=== PATIENT | female | born 1945 | race African-American/Black ===

== ENCOUNTER 2018-11-25 05:40 | Inpatient (IN) | payer OTHER ==
[~2018-11-25] VITALS: Ht 177.8 cm; Wt 104.3 kg
[2018-11-25 06:09] VITALS: BP 144/84
[2018-11-25 08:35] VITALS: BP 144/84
[2018-11-25] MEDS ORDERED: PLAQUENIL200 MG PO (10:27)
[2018-11-25] MEDS ORDERED: NEXIUM20 MG PO (10:28)
[2018-11-25] MEDS ORDERED: COZAAR100 MG PO (10:29)
[2018-11-25] MEDS ORDERED: HYDROCHLOROTHIA25 MG PO (10:30)
[2018-11-25] MEDS ORDERED: ACYCLOVIR400 MG PO (10:47)
[2018-11-25] MEDS ORDERED: SYMBICORT1 AE2 INH (10:49)
[2018-11-25] MEDS ORDERED: XARELTO10 M1 PO (10:49)
[2018-11-25] MEDS ORDERED: ALBUTEROL1.25 MG/3 IH (10:50)
[2018-11-25] MEDS ORDERED: SPIRIVA18 MC1 IH (10:50)
[2018-11-25] MEDS ORDERED: PERCOCET1 TA5 PO (10:51)
[2018-11-25] MEDS ORDERED: MULTI-VITAMINS1 TAB PO (10:52)
[2018-11-25 13:36] VITALS: BP 125/61
--- NOTE | 2018-11-25 13:49 | NUR ---
AWAKE, DROWSY, FROM [place] STATUS POST RIGHT HIP REPLACEMENT. ABLE TO STATE NAME, , WHERE SHE, PRESENT MONTH AND YEAR. OPENED EYES SPONTANEOUSLY. BREATHING EVEN AND UNLABORED ON 3LPM OF O2 VIA NC. LUNG SOUNDS CLEAR. DRESSING TO RIGHT HIP CLEAN AND DRY. ABDUCTOR PILLOW BETWEEN LEGS. ADMISSION HISTORY AND ASSESSMENT DONE. DAUGHTER WITH PT. INSTRUCTED ON USE OF CALL LIGHT TO CALL FOR ASSISTANCE. PLACED WITHIN EASY REACH.
--- NOTE | 2018-11-25 14:25 | NUR ---
PT AMBULATING VIA FWW WITH PHYSICAL THERAPY, STATES PAIN IS TOLERABLE AT THIS TIME, COMPLAINING OF NAUSEA, ZOFRAN IVP GIVEN, DAUGHTER AT BEDSIDE.
--- NOTE | 2018-11-25 14:50 | NUR ---
PT BACK IN BED AFTER AMBULATING WITH PHYSICAL THERAPY, STATES PAIN IS TOELRABLE, STATES NAUSEA WENT AWAY AFTER RECEIVING ZOFRAN, DAUGHTER AT BEDSIDE, TRISTA LIGHT WITHIN REACH.
--- NOTE | 2018-11-25 15:38 | NUR ---
PHARMACIST CALLED, NEED CLARIFICATION FOR PAIN SCALE FOR ORDERED PRN DILAUDID IVP. CALLED DR. QUAN WHO GAVE ORDER FOR PAIN SCALE TO ADMINISTER DILAUDID ORDERED FOR PAIN RATED 7-10. INFORMED PHARMACIST
--- NOTE | 2018-11-25 16:14 | NUR ---
PT RESTING IN BED, NO RESPIRATORY DISTRESS NOTED, STATES PAIN IS TOLERABLE AT THIS TIME @ 2, REFUSING TORADOL AND TYLENOL PO AT THIS TIME, DENIES NAUSEA, DAUGHTER AT BEDSIDE, CALL LIGHT WITHIN REACH.
--- NOTE | 2018-11-25 17:00 | NUR ---
PT RESTING IN BED, WITH BOTH EYES CLOSED, APPEARS TO BE SLEEPING, NO RESPRIATORY DISTRESS NOTED, DAUGHTER AT BEDSIDE, CALL LIGHT WITHIN REACH.
[2018-11-25 17:16] VITALS: BP 108/57
--- NOTE | 2018-11-25 19:00 | NUR ---
PT COMPLAINING OF 3/10 RLE PAIN, TYLNEOL PO GIVEN, NO RESPRIATORY DISTRESS NOTED, DAUGHTER AT BEDSIDE, CALL LIGHT WITHIN REACH. WILL REASSES PAIN.
--- NOTE | 2018-11-25 19:40 | NUR ---
PT RECEIVED A/O X4, ABLE TO MAKE NEEDS KNOWN. DAUGHTER AT BEDSIDE. MED-SURG, PT DENIES ANY CP/PRESSURE. PULSES PALPABLE, EDEMA TO RLE. BREATHING IS EVEN AND UNLABORED ON RA, DENIES SOB, NO RESP DISTRESS NOTED. ABD SOFT AND NONDISTENDED, DENIES N/V. PT DENIES HAVING A BM POST-OP, BUT REPORTS PASSING GAS. ASSISTED PT TO AMBULATE TO BSC TO ATTEMPT TO VOID. GENERALIZED WEAKNESS, FWW AT BEDSIDE. S/P RIGHT TOTAL HIP REPLACEMENT TODAY WITH RT HIP SURGICAL DRSG IN PLACE, CDI. PT REPORTS 6/10 PAIN, TORADOL OR PRN PAIN MED OFFERED, PT REFUSED, PT STATES, "PAIN IS OKAY FOR NOW." SL TO RAC, IVF INFUSING WELL TO LH, SITES PATENT AND INTACT, WNL. NO ACUTE DISTRESS NOTED. CALL LIGHT WITHIN REACH. WILL CONT TO MONITOR.
--- NOTE | 2018-11-25 19:47 | NUR ---
ASSISTED PT TO BEDSIDE COMMODE WITH SETH AND DINO ANDERSON. PT ABLE TO AMBULATE TO COMMODE WITH MINIMAL ASSISTANCE. AFTER AMBULATING TO COMMODE, PT STATES HER PAIN IS 6/10. PT WAS OFFERED TORADOL IVP BUT DECLINED AND STATED SHE DOES NOT WANT MORE PAIN MEDS AT THIS TIME. PT DENIES NAUSEA. DAUGHTER AT BEDSIDE. PT EDUCATED NOT TO GET UP ALONE AND TO USE CALL LIGHT TO CALL FOR HELP. CALL LIGHT WITHIN REACH.
--- NOTE | 2018-11-25 19:52 | NUR ---
ENDORSED CARE TO DINO ANDERSON.
[2018-11-25 20:38] VITALS: BP 137/61
--- NOTE | 2018-11-26 00:50 | NUR ---
PT C/O 11/16 RT HIP PAIN AND REQUESTING TORADOL, PT REFUSED STRONGER PAIN MED. TORADOL IVP GIVEN ORDERED. NO ACUTE DISTRESS NOTED. CALL LIGHT WITHIN REACH. WILL CONT TO MONITOR.
--- NOTE | 2018-11-26 03:19 | NUR ---
PT C/O 11/16 RT HIP PAIN. OFFERED PT STRONGER PAIN MED, PT REFUSED AND REQUESTED FOR TYLENOL. PRN TYLENOL GIVEN ORDERED. NO ACUTE DISTRESS NOTED. IVF INFUSING WELL, SITE WNL. DAUGHTER AT BEDSIDE. CALL LIGHT WITHIN REACH. WILL CONT TO MONITOR.
[2018-11-26 05:24] VITALS: BP 106/53
--- NOTE | 2018-11-26 05:42 | NUR ---
PT C/O 11/16 RT HIP PAIN, PRN DILAUDID IVP GIVEN ORDERED. NO ACUTE DISTRESS NOTED. CALL LIGHT WITHIN REACH. WILL CONT TO MONITOR.
[2018-11-26 06:21] LABS: BASOPHIL % 0.3 % (0-2); PLATELET COUNT 210 x10^3mcL (130-400)
[2018-11-26 06:22] LABS: RED CELL DISTRIBUTION WIDTH 15.5 % (11.5-14.5)
[2018-11-26 06:45] LABS: CARBON DIOXIDE 28.9 mmol/L (21-32); CHLORIDE SERUM 103 mmol/L (98-107); CREATININE SERUM 1.1 mg/dL (0.6-1.0); GLUCOSE SERUM 118 mg/dL (74-106); POTASSIUM SERUM 3.9 mmol/L (3.5-5.1); SODIUM SERUM 139 mmol/L (136-145)
--- NOTE | 2018-11-26 07:10 | NUR ---
RECEIVED PT FROM RALE[place] RN. PT AA/OX4 LAYING IN BED. NO S/S OF ACUTE DISTRESS. DENIES PAIN AT THIS TIME. DRESSING TO RIGHT HIP CDI. ABDUCTOR PILLOW IN PLACE. NO N/V. NO CHILLS. NO COMPLAINT OF CHEST PAIN. NO SOB ON ROOM AIR. IV WNL TO RAC, IV FLUIDS FLOWING. SITE WNL. NO REDNESS, NO SWELLING, NO INFILTRATION. PATENT. PT CALM/COOPERATIVE. FALL PREC IN PLACE. FWW AT BEDSIDE. BED IN LOW POSITION. CALL LIGHT WITHIN REACH. INSTRUCTED TO USE CALL LIGHT TO CALL FOR ASSISTANCE PRN. VERBALIZED UNDERSTANDING. DAUGHTER AT BEDSIDE. WILL CONTINUE TO MONITOR.
[2018-11-26 07:42] VITALS: BP 106/56
--- NOTE | 2018-11-26 07:50 | NUR ---
PT SLEPT AT INTERVALS THROUGHOUT THE EVENING. BREATHING IS EVEN AND UNLABORED, NO RESP DISTRESS NOTED. PT REPORTS 6/10 RIGHT HIP PAIN, PT STATES PAIN IS TOLERABLE AND REFUSES AND ADDITIONAL PAIN MEDS AT THIS TIME. PT REPORTS VOIDING AND PASSING GAS, BUT DENIES HAVING A BM POST-OP. DRSG IN PLACE TO RIGHT HIP, CDI. NO ACUTE CHANGES ENCOUNTERED DURING SHIFT. ALL NEEDS MET AND ANTICIPATED. DAUGHTER AT BEDSIDE. IVF INFUSING WELL TO RAC, SITE WNL. CALL LIGHT WITHIN REACH. CONT OF CARE ENDORSED TO AM NURSE. ALL QUESTIONS AND CONCERNS ADDRESSED.
[2018-11-26] MEDS ORDERED: ACETAMINOPHEN-H1 TA1 PO (08:01)
[2018-11-26] MEDS ORDERED: COL100 PO (08:02)
--- NOTE | 2018-11-26 09:37 | NUR ---
SCREEN FOR LOW KOBE SCALE AT RISK PRESSURE ULCER INJURY PREVENTION INTERVENTIONS: -TURN AND REPOSITION PATIENT Q 2H OFFLOAD LEFT AND RIGHT HIPS -ASSESS AND MONITOR SKIN CONDITION DURING POSITION CHANGE -OFFLOAD BILATERAL HEELS BY PLACING PILLOWS UNDER CALVES AT ALL TIMES, UNLESS OTHERWISE CONTRAINDICATED -KEEP SKIN CLEAN AND DRY AT ALL TIMES.
--- NOTE | 2018-11-26 11:30 | NUR ---
PT LAYING IN BED. AA/OX4. REPORTS PAIN TOLERABLE AT THIS TIME. DECLINED TO PAIN MEDICATION. NO N/V. NO SOB ON ROOM AIR. NO CHEST PAIN. IV WNL TO RAC, NO REDNESS, NO SWELLING, NO INFILTRATION. SALINE LOCKED AT THIS TIME. PER PT REQUEST. PT BEING DISCHARGE. TOLERATING FLUIDS WELL. CALM/COOPERATIVE. FALL PRECAUTIONS IN PLACE. WALKER AT BEDSIDE. DAUGHTER AT BEDSIDE. BED IN LOW POSITION. CALL LIGHT WITHIN REACH. WILL CONTINUE TO MONITOR.
[2018-11-26 13:40] VITALS: BP 105/53
--- NOTE | 2018-11-26 15:52 | NUR ---
PT BEING DISCHARGED TO HOME. AWAKE, ALERT, ORIENTED X4. REPORTS PAIN 7/10 TO RIGHT HIP, ACHING, CONTINUOUS, WORSE WITH AMBULATION. AMBULATED TO RESTROOM WITH WALKER WITH ASSIST. GIVEN PO PAIN MED, SEE MAR. NO S/S OF ACUTE DISTRESS. SURGICAL DRESSING TO RIGHT HIP CDI. NO N/V. NO MICHELE. NO DIZZINESS. NO SOB ON ROOM AIR. NO CHEST PAIN. DISCHARGE EDUCATION PROVIDED TO PATIENT AND DAUGHTER. INSTRUCTED TO FOLLOW UP WITH PCP/SURGEON. PT VERBALIZED UNDERSTANDING. PRESCRIPTION MEDICATION AT HOME. BELONGINGS WITH PATIENT. WILL CONTINUE TO MONITOR.
--- NOTE | 2018-11-26 16:20 | NUR ---
PT TAKEN TO DISCHARGE LOBBY BY SETH SAM, TAKEN BY WHEELCHAIR. REPORTS PAIN DECREASED, RATES PAIN 5/10. DECREASING. NO S/S OF ACUTE DISTRESS. SURGICAL DRESSING INTACT, UNABLE TO GET DISCHARGE PHOTO--DRESSING TO BE RETAINED PER PHYSICIAN. BELONGINGS/WALKER WITH PATIENT/DAUGHTER.
== END 2018-11-26 16:24 | disposition home or self-care (01) | DRG 470 ==
LOC: MU 05:40 → DU 07:30 → MU 13:21
PROVIDERS: ADMIT Orthopaedic Surgery
PROC: 0SR903Z Replacement of Right Hip Joint with Ceramic Synthetic Substitute, Open Approach (ICD-10-PCS; principal; 2018-11-25 07:30)
DX: M16.11 Unilateral primary osteoarthritis, right hip (principal); E89.0 Postprocedural hypothyroidism; M06.9 Rheumatoid arthritis, unspecified; M79.7 Fibromyalgia; J45.909 Unspecified asthma, uncomplicated; Z86.711 Personal history of pulmonary embolism; Z79.01 Long term (current) use of anticoagulants; Z96.652 Presence of left artificial knee joint; Z68.30 Body mass index [BMI] 30.0-30.9, adult
CPT/HCPCS: 97116-GP; 97530-GP; C1713; C1776; G0378; J0330; J1100; J1170; J1885; J2270; J2405; J2704; J2710; J3010; J3490; J7030; J7120; Q0092